=== PATIENT | male | born 1985 | race Caucasian/White ===

== ENCOUNTER 2022-05-02 04:38 | Emergency (ER) | payer SELFPAY ==
--- OUTSIDE RECORDS SUMMARY | 2022-05-02 04:42 | XMS REPORT | Continuity of Care Document ---
:1985 Author Organization [facility] t Address [address] [place] [address] Care Team Providers Name Role Phone JERAMY JESSICA Primary Care Physician Unavailable Elsa Shah Attending Clinician Jorge Maldonado MD Attending Clinician JORGE MALDONADO Attending Clinician Unavailable JORGE MALDONADO Admitting Clinician Unavailable Problems This patient has no known problems. Allergies, Adverse Reactions, Alerts Allergy Allergy Status Severity Reaction(s) Onset Inactive Treating Comm ents Source Name Type Date Date Clinician NO KNOWN Drug Active Univers ALLERGIE Class ity of S [facility] Social History Social Habit Start Date Stop Date Quantity Comments Source Sex Assigned At Uni versity [facility] Exposure to SARS-CoV-2 Not sure [facility] [place] (event) [facility] Smoking Status Start Date Stop Date Source Unknown if ever smoked Universit y [facility] Medications Ordered Filled Start Stop Current Ordering Indication Dosage Frequency Signature Comments Components Source Medication Medication Date Date Medication? Clinician (SIG) Name Name dicyclomine 2020-0 Yes [id number] 10mg Take 1 Univers (BENTYL) 10 5-16 capsule by it [place] of [place]four[place] Medical times Branch daily. ondansetron 2020-0 Yes [id number] 4mg Take 1 Univers 4 mg 5-16 tablet by ity of disintegrat 00:00: mouth [place] ing tablet 00 every 4 Medica l (four) Branch hours as needed for Nausea and Vomiting (N/V). polyethylen 2020-0 2020- No [id number] 17g Take 17 g Univers e glycol 5-16 05-27 by mouth ity of (MIRALAX) 00:00[place] 04[place]59 [place] :00 10 days. Medical gram/dose Branch powder Vital Signs Vital Name Observation Time Observation Value Comments Source Systolic blood 2019-10-25 18:40:00 117 mm[Hg] [facility] Diastolic blood 2019-10-25 18:40:00 74 mm[Hg] [facility] Heart rate 2019-10-25 18:40:00 65 /min [facility] Respiratory rate 2019-10-25 18:40:00 17 /min [facility] Oxygen saturation in 2019-10-25 18:40:00 96 /min [facility] Arterial blood by [facility] Pulse oximetry [place] Body temperature 2019-10-25 17:30:00 37.11 Yolanda [facility] Body weight 2019-10-25 17:30:00 102.059 kg [facility] Procedures Procedure Date / Time Performing Clinician Source Performed HEPATIC FUNCTION PANEL 2019-10-25 18:23:00 Jorge Maldonado [facility] ([id number]) (ALB,T.PRO,BILI [facility] T,BU/BC,ALT,AST,ALK PHOS) BASIC METABOLIC PANEL 2019-10-25 18:23:00 Jorge Maldonado [facility] (NA, K, CL, CO2, [facility] GLUCOSE, BUN, CREATININE, CA) CBC WITH DIFFERENTIAL 2019-10-25 18:23:00 Jorge Maldonado [facility] URINALYSIS 2019-10-25 18:23:00 Jorge Maldonado [employer] [facility] CT ABDOMEN PELVIS WO 2019-10-25 17:55:00 Jorge Maldonado [facility] CONTRAST [facility] NOTICE OF PRIVACY 2019-10-25 17:25:12 Doctor Unassigned, No [facility] PRACTICES Name Medical Branch Encounters Start End Encounter Admission Attending Care Care Encounter Source Date/Time Date/Time Type Type Clinicians Facility Department ID 2019-10-25 2019-10-25 Emergency Elsa Orozco [facility] [id number] Univers 12:32:27 14:35:00 Jorge Maldonado [place] [id number] [facility] [id number] [facility] [id number] [facility] 084 Branch 2019-10-25 2019-10-25 Emergency X MALDONADO, [facility] ERT [id number] Univers 12:32:27 14:35:00 JORGE mason [facility] Results Test Test Test Results Result Source Description Time Comments Comments CT ABDOMEN 2019-10 No acute intra-abdominal University of PELVIS WO -16 abnormality. Specifically, [place] [facility] CONTRAST 19:34:1 no urinary systemcalculi. No Branch 7 hydronephrosis Minimal compression of the left renal vein transiting under the SMA.Correlate with UA to evaluate for hematuria. Preliminary Report Dictated by Resident: Addi Smith MD., have reviewed this study and agree with theabove report.EXAM: CT ABDOMEN AND PELVIS WITHOUT CONTRAST HISTORY: Suspected urinary tract stone COMPARISON: None. TECHNIQUE AND FINDINGS: Contiguous axial imaging from the level of the lungbases through the pubic symphysis was performed without the intravenousadministration of contrast. Coronal and sagittal reconstructions wereobtained. ?Auto mA and/or iterative reconstruction were used to reduceradiation dose. FINDINGS: Limited evaluation of abdominal and pelvic organs due to lack ofintravenous contrast. LOWER THORAX: The lungs bases are clear. LIVER: Enlarged liver measures nearly 22 cm in craniocaudal dimension. Nofocal hepatic lesions identified within limits of unenhanced exam. GALLBLADDER AND BILIARY TREE: Physiologically distended gallbladder withoutradiopaque cholelithiasis. No pericholecystic free fluid. SPLEEN: No splenomegaly. Mildly lobular contour along the medial margin. PANCREAS: No ductal dilation. ADRENAL GLANDS: No adrenal nodules. KIDNEYS: No hydronephrosis or nephrolithiasis. No contour deforming renallesion. Normal unenhanced appearance of bilateral kidneys. PERITONEUM AND RETROPERITONEUM: No free air or fluid. LYMPH NODES: No lymphadenopathy. Mildly prominent lymph node adjacent tothe left diaphragmatic jaleel and left adrenal measures 6 mm in short axis,likely reactive.. Few additional subcentimeter mesenteric lymph nodes arealso thought to be reactive. GI TRACT: No dilation or abnormal wall thickening. Normal appendix. Mildrectosigmoid diverticulosis without diverticulitis. Tiny sliding-typehiatal hernia. PELVIS/BLADDER: Urinary bladder is normal for the degree of distention. Noradiopaque calculi within the urinary bladder. VESSELS: Circumaortic left renal vein. Limited evaluation due to lack ofintravenous contrast. BONES AND SOFT TISSUES: No suspicious lytic or sclerotic bony lesions. Mildmultilevel degenerative changes are most prominent at the lumbosacraljunction. Grade 1 retrolisthesis of L5 over S1. Mild anterior superiorendplate wedging at thoracolumbar junction is felt to be degenerative innature. [facility], Radiant Results Inft User - 10/25/2019 2:35 PM CDTEXAM: CT ABDOMEN AND PELVIS WITHOUT CONTRASTHISTORY: Suspected urinary tract stoneCOMPARISON: None.TECHNIQUE AND FINDINGS: Contiguous axial imaging from the level of the lungbases through the pubic symphysis was performed without the intravenousadministration of contrast. Coronal and sagittal reconstructions wereobtained. Auto mA and/or iterative reconstruction were used to reduceradiation dose.FINDINGS: Limited evaluation of abdominal and pelvic organs due to lack ofintravenous contrast.LOWER THORAX: The lungs bases are clear. LIVER: Enlarged liver measures nearly 22 cm in craniocaudal dimension. Nofocal hepatic lesions identified within limits of unenhanced exam.GALLBLADDER AND BILIARY TREE: Physiologically distended gallbladder withoutradiopaque cholelithiasis. No pericholecystic free fluid.SPLEEN: No splenomegaly. Mildly lobular contour along the medial margin.PANCREAS: No ductal dilation.ADRENAL GLANDS: No adrenal nodules.KIDNEYS: No hydronephrosis or nephrolithiasis. No contour deforming renallesion. Normal unenhanced appearance of bilateral kidneys.PERITONEUM AND RETROPERITONEUM: No free air or fluid.LYMPH NODES: No lymphadenopathy. Mildly prominent lymph node adjacent tothe left diaphragmatic jaleel and left adrenal measures 6 mm in short axis,likely reactive.. Few additional subcentimeter mesenteric lymph nodes arealso thought to be reactive.GI TRACT: No dilation or abnormal wall thickening. Normal appendix. Mildrectosigmoid diverticulosis without diverticulitis. Tiny sliding-typehiatal hernia.PELVIS/BLADDER: Urinary bladder is normal for the degree of distention. Noradiopaque calculi within the urinary bladder.VESSELS: Circumaortic left renal vein. Limited evaluation due to lack ofintravenous contrast.BONES AND SOFT TISSUES: No suspicious lytic or sclerotic bony lesions. Mildmultilevel degenerative changes are most prominent at the lumbosacraljunction. Grade 1 retrolisthesis of L5 over S1. Mild anterior superiorendplate wedging at thoracolumbar junction is felt to be degenerative innature.IMPRESSIONNo acute intra-abdominal abnormality. Specifically, no urinary systemcalculi. No hydronephrosisMinimal compression of the left renal vein transiting under the SMA.Correlate with UA to evaluate for hematuria.Preliminary Report Dictated by Resident: Addi Barajas MD., have reviewed this study and agree with theabove report. Urinalysis 2019-10-25 19:16:00 Test Item Value Reference Range Interpretation Comme nts APPEARANCE (test code = Clear Clear 2741404396) COLOR (test code = 0167632189) Yellow Yellow PH (test code = 4726702519) 4.8-8.0 SP GRAVITY (test code = >=1.030 1.003-1.030 8288173777) GLU U QUAL (test code = Negative Negative 5505566380) BLOOD (test code = 0455802121) Negative Negative KETONES (test code = 5963312220) Negative Negative PROTEIN (test code = 2887-8) Negative Negative UROBILIN (test code = 0.2 mg/dL See_Comment [Auto mated message] The 1933364894) system which ge nerated this result transmit cecille reference range: 0-1.0 mg /dL. The reference range was not used to interpret th is result as normal/abnormal . BILIRUBIN (test code = Negative Negative 7193153844) NITRITE (test code = 1849994931) Negative Negative LEUK MILLER (test code = Negative Negative 9718230343) RBC/HPF (test code = 3776314715) <1 See_Comment [Automated message] The system which ge nerated this result transmit cecille reference range: 0 - 3 HP F. The reference range was not used to interpret th is result as normal/abnormal . WBC/HPF (test code = 7008097010) <1 See_Comment [Automated message] The system which ge nerated this result transmit cecille reference range: 0 - 5 HP F. The reference range was not used to interpret th is result as normal/abnormal . BACTERIA (test code = Negative Negative 9244561269) Lab Interpretation (test code = Normal 65015-2) [facility] Metabolic Panel (NA, K, CL, CO2, GLUCOSE, BUN, CREATININE, CA)2019-10-25 18:54:00 Test Item Value Reference Range Interpretation Comments NA (test code = 142 mmol/L 135-145 6076521605) K (test code = 3.6 mmol/L 3.5-5 4319740295) CL (test code = 109 mmol/L 98-108 H 4784627522) CO2 TOTAL (test code = 24 mmol/L 23-31 9065844704) AGAP (test code = 2-16 5616775815) BUN (test code = 12 mg/dL 7-23 8670767606) GLUCOSE (test code = 89 mg/dL 70-110 1785747826) CREATININE (test code = 0.87 mg/dL 0.6-1.25 3476521317) CALCIUM (test code = 9.7 mg/dL 8.6-10.6 0714512604) eGFR Calculation mL/min/1.73m2 (Non-) (test code = 6595581394) eGFR Calculation mL/min/1.73m2 () (test code = 0430013428) HARSHA (test code = HARSHA) Association of Glomerular Filtration Rate (GFR) and Staging of Kidney Disease* + --+ --+ ------+| GFR (mL/min/1.73 m2) ?| With Kidney Damage ?| ?Without Kidney Damage+ --------+ --------+ +| ?>90 ?| ?Stage one ?| ? Normal ?+ ---+ ---+ -------+| ?60-89 ?| ?Stage two ?| ? Decreased GFR ? + --+ --+ ------+| ?30-59 ?| ?Stage three ?| ? Stage three ? + --+ --+ ------+| ?15-29 ?| ?Stage four ? | ? Stage four ?+ ---+ ---+ -------+| ?<15 (or dialysis) ? ?| ?Stage five ? | ? Stage five ?+ ---+ ---+ -------+ *Each stage assumes the associated GFR level has been in effect for at least three months. ?Stages 1 to 5, with or without kidney disease, indicate chronic kidney disease. Notes: Determination of stages one and two (with eGFR >59mL/min/1.73 m2) requires estimation of kidney damage for at least three months as defined by structural or functional abnormalities of the kidney, manifested by either:Pathological abnormalities or Markers of kidney damage (including abnormalities in the composition of the blood or urine or abnormalities in imaging tests). Lab Interpretation Abnormal (test code = 00113-2) [facility] (ALB, T.PRO, BILI T, BU/BC, ALT, AST, ALK PHOS)2019-10-25 18:54:00 Test Item Value Reference Range Interpretation Comments TOTAL BILI (test code = 5191209223) 0.2 mg/dL 0.1-1.1 BILI UNCON (test code = 9005581508) 0.4 mg/dL 0.1-1.1 BILI CONJ (test code = 0003072263) 0.0 mg/dL 0-0.3 T PROTEIN (test code = 5168636974) 6.8 g/dL 6.3-8.2 ALBUMIN (test code = 5142435758) 4.3 g/dL 3.5-5 ALK PHOS (test code = 8638116961) 44 U/L 34-122 ALTv (test code = 1742-6) 19 U/L 5-50 AST(SGOT) (test code = 8691499814) 18 U/L 13-40 Lab Interpretation (test code = Normal 99183-8) [facility] WITH [id number] 18:42:00 Test Item Value Reference Range Interpretation Comments WBC (test code = See_Comment H [Automated 1190-2) message] The sy stem which generated this result transmitted reference range : 4.20 - 10.70 10*3/?L. The reference range was not used to interpret this result as normal/abnormal . RBC (test code = See_Comment [Automated 579-8) message] The sy stem which generated this result transmitted reference range : 4.26 - 5.52 10*6/?L. The reference range was not used to interpret this result as normal/abnormal . HGB (test code = 14.2 g/dL 12.2-16.4 718-7) HCT (test code = 40.6 % 38.4-49.3 4544-3) MCV (test code = 89.8 fL 81.7-95.6 787-2) MCH (test code = 31.4 pg 26.1-32.7 785-6) MCHC (test code = 35.0 g/dL 31.2-35 786-4) RDW-SD (test code = 43.7 fL 38.5-51.6 43675-4) RDW-CV (test code = 13.3 % 12.1-15.4 788-0) PLT (test code = See_Comment [Automated 777-3) message] The sy stem which generated this result transmitted reference range : 150 - 328 10*3/ ?L. The reference r kia was not used to interpret this result as normal/abnormal . MPV (test code = 11.2 fL 9.8-13 13898-0) NRBC/100 WBC (test See_Comment [Automat ed code = 9774531077) message] The system which generated this result transmitted reference range : 0.0 - 10.0 /100 WBCs. The refer ence range was not u sed to interpret th is result as normal/abnormal . NRBC x10^3 (test code <0.01 See_Comment [Auto mated = 0045402459) message] The s ystem which generated this result transmitted reference range : 10*3/?L. The reference range was not used to interpret this result as normal/abnormal . GRAN MAT (NEUT) % 58.4 % (test code = 770-8) IMM GRAN % (test code 0.30 % = 3368364371) LYMPH % (test code = 32.0 % 736-9) MONO % (test code = 6.6 % 5905-5) EOS % (test code = 2.3 % 713-8) BASO % (test code = 0.4 % 706-2) GRAN MAT x10^3(ANC) 6.78 10*3/uL 1.99-6.95 (test code = 8735339922) IMM GRAN x10^3 (test 0.03 10*3/uL 0-0.06 code = 5749609991) LYMPH x10^3 (test code 3.71 10*3/uL 1.09-3.23 H = 731-0) MONO x10^3 (test code 0.76 10*3/uL 0.36-1.02 = 742-7) EOS x10^3 (test code = 0.27 10*3/uL 0.06-0.53 711-2) BASO x10^3 (test code 0.05 10*3/uL 0.01-0.09 = 704-7) Lab Interpretation Abnormal (test code = 24035-8) [facility]"
[2022-05-02] MEDS ORDERED: AMOX/K CLAV 875 MG TAB ONE (05:25)
--- NOTE | 2022-05-02 05:26 | EDPHYS ---
Physician Documentation [facility] Name: Cesar Zambrano Age: 37 yrs Sex: Male : 1985 Arrival Date: 05/02/2022 Time: 04:42 Bed 20 Private MD: ED Physician Lito Leal HPI: 05/02 05:19 This 37 yrs old Male presents to ER via Ambulatory with complaints of anaid Toothache. 05:19 The patient presents with pain, redness. The problem is located in the left anaid submandibular area. Onset: The symptoms/episode began/occurred 1 day(s) ago. Duration: The symptoms are continuous, and are steadily getting worse. Modifying factors: The symptoms are alleviated by nothing, the symptoms are aggravated by nothing. Associated signs and symptoms: The patient has no apparent associated signs or symptoms. Severity of symptoms: At their worst the symptoms were moderate, this morning, in the emergency department the symptoms are unchanged. The patient has experienced similar episodes in the past, a few times. Historical: - Allergies: 04:52 No Known Allergies; aa9 - Home Meds: 04:52 None [Active]; aa9 - PMHx: 04:52 None; aa9 - PSHx: 04:52 None; aa9 - Immunization history:: Client reports having NOT received the Covid vaccine. - Social history:: Smoking status: Patient reports use of chewing tobacco. - Family history:: not pertinent. ROS: 05:19 Constitutional: Negative for fever, chills, and weight loss, Eyes: Negative for injury, anaid pain, redness, and discharge, Neck: Negative for injury, pain, and swelling, Cardiovascular: Negative for chest pain, palpitations, and edema, Respiratory: Negative for shortness of breath, cough, wheezing, and pleuritic chest pain, Abdomen/GI: Negative for abdominal pain, nausea, vomiting, diarrhea, and constipation, Back: Negative for injury and pain, : Negative for injury, bleeding, discharge, and swelling, MS/Extremity: Negative for injury and deformity, Skin: Negative for injury, rash, and discoloration, Neuro: Negative for headache, weakness, numbness, tingling, and seizure, Psych: Negative for depression, anxiety, suicide ideation, homicidal ideation, and hallucinations, Allergy/Immunology: Negative for hives, rash, and allergies, Endocrine: Negative for neck swelling, polydipsia, polyuria, polyphagia, and marked weight changes, Hematologic/Lymphatic: Negative for swollen nodes, abnormal bleeding, and unusual bruising. 05:19 ENT: Positive for dental pain. Exam: 05:19 Constitutional: This is a well developed, well nourished patient who is awake, alert, anaid and in no acute distress. Head/Face: Normocephalic, atraumatic. Eyes: Pupils equal round and reactive to light, extra-ocular motions intact. Lids and lashes normal. Conjunctiva and sclera are non-icteric and not injected. Cornea within normal limits. Periorbital areas with no swelling, redness, or edema. Neck: Trachea midline, no thyromegaly or masses palpated, and no cervical lymphadenopathy. Supple, full range of motion without nuchal rigidity, or vertebral point tenderness. No Meningismus. Chest/axilla: Normal chest wall appearance and motion. Nontender with no deformity. No lesions are appreciated. Cardiovascular: Regular rate and rhythm with a normal S1 and S2. No gallops, murmurs, or rubs. Normal PMI, no JVD. No pulse deficits. Respiratory: Lungs have equal breath sounds bilaterally, clear to auscultation and percussion. No rales, rhonchi or wheezes noted. No increased work of breathing, no retractions or nasal flaring. Abdomen/GI: Soft, non-tender, with normal bowel sounds. No distension or tympany. No guarding or rebound. No evidence of tenderness throughout. Back: No spinal tenderness. No costovertebral tenderness. Full range of motion. Male : Normal genitalia with no discharge or lesions. Skin: Warm, dry with normal turgor. Normal color with no rashes, no lesions, and no evidence of cellulitis. MS/ Extremity: Pulses equal, no cyanosis. Neurovascular intact. Full, normal range of motion. Neuro: Awake and alert, GCS 15, oriented to person, place, time, and situation. Cranial nerves II-XII grossly intact. Motor strength 5/5 in all extremities. Sensory grossly intact. Cerebellar exam normal. Normal gait. Psych: Awake, alert, with orientation to person, place and time. Behavior, mood, and affect are within normal limits. 05:19 ENT: Mouth: Gums: noted to have cellulitis, pink, reddened, on the lower left second molar, Posterior pharynx: is normal, airway is patent, no erythema, no exudate, no peritonsilar mass, no pooling of secretions, no swelling, normal tonsil apperance, normal sized tonsils, normal uvula appearance, normal uvula size, Airway: normal, no evidence of obstruction, Tonsils: are normal in appearance, Uvula: normal, midline, swelling, is not appreciated, erythema, is not appreciated, exudate, is not appreciated, peritonsillar mass, is not appreciated. Vital Signs: 04:50 BP 154 / 92; Pulse 60; Resp 18 S; Temp 98.3(O); Pulse Ox 100% on R/A; Weight 106.59 kg aa9 (R); Height 6 ft. 0 in. (182.88 cm) (R); Pain 9/10; 05:28 BP 150 / 80; Pulse 62; Resp 17 S; Pulse Ox 98% on R/A; aa9 04:50 Body Mass Index 31.87 (106.59 kg, 182.88 cm) aa9 MDM: 04:47 Patient medically screened. anaid 05:25 Differential diagnosis: dental caries, dental abscess, gingivostomatitis. Data anaid reviewed: vital signs, nurses notes. Data interpreted: aquarium specialist: rate is 60 beats/min, rhythm is normal sinus rhythm, regular, Pulse oximetry: on room air is 100 %. Counseling: I had a detailed discussion with the patient and/or guardian regarding: the historical points, exam findings, and any diagnostic results supporting the discharge/admit diagnosis, the need for outpatient follow up, for definitive care, a dentist, an oral maxilofacial specialist. Administered Medications: 05:26 Drug: Augmentin (Amoxicillin-Clavulanate) 875 mg Route: PO; aa9 Disposition Summary: 05/02/22 05:26 Discharge Ordered Location: Home anaid Problem: new anaid Symptoms: have improved anaid Condition: Stable anaid Diagnosis - Dental caries, unspecified anaid - Dental root caries anaid Followup: anaid - With: Private Physician - When: 1 - 2 days - Reason: Recheck today's complaints, Continuance of care, Re-evaluation by your physician Followup: anaid - With: Lv Mercedes DDS - When: 1 - 2 days - Reason: Recheck today's complaints, Re-evaluation by your physician Discharge Instructions: - Discharge Summary Sheet anaid - Dental Caries, Adult anaid - Dental Pain anaid - Dental Pain, [id number] anaid - Diet and Dental Disease anaid - Dental Caries, Adult, [id number] [facility] Forms: - Medication Reconciliation Form anaid - Thank You Letter anaid - Antibiotic Education anaid - Prescription Opioid Use [facility] Prescriptions: - Amoxicillin 500 mg Oral Capsule - take 1 capsule by ORAL route every 8 hours for 10 days; 30 tablet; Refills: 0, [facility] Product Selection Permitted - Ibuprofen 600 mg Oral Tablet - take 1 tablet by ORAL route every 6 hours As needed take with food; 20 tablet; [facility] Refills: 0, Product Selection Permitted - Tylenol-Codeine #3 300 mg-30 mg Oral - take 2 tablet by ORAL route every 6 hours; 20 tablet; Refills: 0, Product anaid Selection Permitted Signatures: Lito Leal MD MD cha Avalos, Aylin, RN RN aa9
--- NOTE | 2022-05-02 05:26 | ER ---
Nurse's Notes [facility] Name: Cesar Zambrano Age: 37 yrs Sex: Male : 1985 Arrival Date: 05/02/2022 Time: 04:42 Bed 20 Private MD: Diagnosis: Dental caries, unspecified;Dental root caries Presentation: 05/02 04:50 Chief complaint: Patient states: My left side of my jaw hurts, I know its my tooth, its aa9 been hurting all night, Aleve barely helps at all, I just want some antibiotics. Coronavirus screen: Vaccine status: Patient reports being unvaccinated. Ebola Screen: No symptoms or risks identified at this time. Initial Sepsis Screen: Does the patient meet any 2 criteria? No. Patient's initial sepsis screen is negative. Does the patient have a suspected source of infection? No. Patient's initial sepsis screen is negative. Risk Assessment: Do you want to hurt yourself or someone else? Patient reports no desire to harm self or others. Onset of symptoms was May 02, 2022. 04:50 Method Of Arrival: Ambulatory aa9 04:50 Acuity: TREVIN 4 aa9 Triage Assessment: 04:53 General: Appears in no apparent distress. comfortable, Behavior is calm, cooperative, aa9 appropriate for age. Pain: Complains of pain in left submandibular area Pain currently is 9 out of 10 on a pain scale. EENT: Reports pain in left jaw. Neuro: Level of Consciousness is awake, alert, obeys commands, Oriented to person, place, time, situation. Cardiovascular: Patient's skin is warm and dry. Respiratory: Airway is patent Respiratory effort is even, unlabored. GI: No signs and/or symptoms were reported involving the gastrointestinal system. : No signs and/or symptoms were reported regarding the genitourinary system. Derm: Skin is intact, is healthy with good turgor. Musculoskeletal: No signs and/or symptoms reported regarding the musculoskeletal system. Historical: - Allergies: 04:52 No Known Allergies; aa9 - Home Meds: 04:52 None [Active]; aa9 - PMHx: 04:52 None; aa9 - PSHx: 04:52 None; aa9 - Immunization history:: Client reports having NOT received the Covid vaccine. - Social history:: Smoking status: Patient reports use of chewing tobacco. - Family history:: not pertinent. Screenin:54 Abuse screen: Denies threats or abuse. Denies injuries from another. Nutritional aa9 screening: Difficulty chewing/swallowing? Yes. Tuberculosis screening: No symptoms or risk factors identified. Fall Risk None identified. Assessment: 05:27 Reassessment: Patient appears in no apparent distress at this time. Neuro: Level of aa9 Consciousness is awake, alert, obeys commands, Oriented to person, place, time, situation. Respiratory: Airway is patent Respiratory effort is even, unlabored. Vital Signs: 04:50 BP 154 / 92; Pulse 60; Resp 18 S; Temp 98.3(O); Pulse Ox 100% on R/A; Weight 106.59 kg aa9 (R); Height 6 ft. 0 in. (182.88 cm) (R); Pain 9/10; 05:28 BP 150 / 80; Pulse 62; Resp 17 S; Pulse Ox 98% on R/A; aa9 04:50 Body Mass Index 31.87 (106.59 kg, 182.88 cm) aa9 ED Course: 04:42 Patient arrived in ED. bp1 04:44 Lalita Santos, RN is Primary Nurse. aa9 04:47 Lito Leal MD is Attending Physician. [facility] 04:52 Triage completed. aa9 04:54 Arm band placed on. aa9 04:54 Patient has correct armband on for positive identification. Bed in low position. Call aa9 light in reach. Pulse ox on. NIBP on. 05:26 Lv Mercedes DDS is Referral Physician. anaid 05:33 No provider procedures requiring assistance completed. Patient did not have IV access aa9 during this emergency room visit. Administered Medications: 05:26 Drug: Augmentin (Amoxicillin-Clavulanate) 875 mg Route: PO; aa9 Medication: 05:33 VIS not applicable for this client. aa9 Outcome: 05:26 Discharge ordered by . [facility] 05:33 Discharged to home ambulatory. aa9 05:33 Condition: stable 05:33 Discharge instructions given to patient, Instructed on discharge instructions, follow up and referral plans. Demonstrated understanding of instructions, follow-up care, medications, Prescriptions given X 3. 05:34 Patient left the ED. aa9 Signatures: Lito Leal MD MD cha Paniauga, Brittany bp1 Santos, Lalita, RN RN aa9
[2022-05-02 05:38] VITALS: TEMP 98.3
[2022-05-02 05:39] VITALS: BP 150/80; O2SAT 98
== END 2022-05-02 05:34 | disposition home or self-care (01) ==
LOC: ER 04:38
DX: K02.7 Dental root caries (principal); K02.9 Dental caries, unspecified; F17.220 Nicotine dependence, chewing tobacco, uncomplicated
CPT/HCPCS: 99283

== ENCOUNTER 2022-12-25 17:46 | Emergency (ER) | payer SELFPAY ==
--- OUTSIDE RECORDS SUMMARY | 2022-12-25 17:49 | XMS REPORT | Continuity of Care Document ---
:1985 Author Organization [facility] t Address [address] [place] [address] [place] [id number] Care Team Providers Name Role Phone PCP, PATIENT DOES NOT HAVE A Primary Care Physician Unavaila KARMEN Zelaya Attending Clinician Unavailable Karmen Llamas MD Attending Clinician Elsa Shah Attending Clinician Jessica Maldonado MD Attending Clinician JESSICA MALDONADO Attending Clinician Unavailable KARMEN LLAMAS Admitting Clinician Unavailable JESSIAC MALDONADO Admitting Clinician Unavailable Problems This patient has no known problems. Allergies, Adverse Reactions, Alerts Allergy Allergy Status Severity Reaction(s) Onset Inactive Treating Comm ents Source Name Type Date Date Clinician NO KNOWN Drug Active Univers ALLERGIE Class [facility] Social History Social Habit Start Date Stop Date Quantity Comments Source Gender identity [facility] Exposure to Not sure [facility] SARS-CoV-2 (event) Medica l Branch Sexual orientation [facility] Sex Assigned At [birth year] [facility] 00:00:00 00:00:00 Medical Branch Smoking Status Start Date Stop Date Source Tobacco smoking consumption [facility] Branch Medications Ordered Filled Start Stop Current Ordering Indication Dosage Frequency Signature Comments Components Source Medication Medication Date Date Medication? Clinician (SIG) Name Name iopamidol 2022-0 2023- No [id number] 75mL 75 mL, Univers (ISOVUE 7-12 07-12 Intravenou ity o f 370-500 mL) 02:30: 02:30 s, ONCE, 1 [place] injection 00 :00 dose, On Medica l 75 mL Tue Branch 12/19/22 at 2130, Routine clindamycin 2022- No 600mg 600 mg, IV Univers in 5 % 12-20 Piggyback, ity of dextrose 02:00: 01:30 ONCE, 1 [place] (CLEOCIN) 00 :00 dose, On Medica l 600 mg/50 Tue Branch mL IV 12/19/22 at piggyback 2100, RTU 600 mg Administer over 30 Minutes, 50 mL
R vineet for Anti-Infec tive: Documented Infection< br>Documen cecille Infection Site: HEENT
D uration of Therapy: Other (see Comments)< br>Restric cecille use approved by: ED PROVIDER ketorolac 2022- No 30mg 30 mg, Unive rs (TORADOL) 12-20 Slow IV ity of injection 01:45: 00:54 Push, [place] 30 mg 00 :00 ONCE, 1 Medical dose, On Branch 12/19/22 at 2045, Routine penicillin Yes [id number] 500mg Take 1 Univers v potassium 7-11 tablet by ity of 500 mg 00:00: mouth 4 [place] tablet 00 (four) Medical times Branch daily. ibuprofen Yes [id number] 800mg Take 1 Univers 800 mg 7-11 tablet by ity of tablet 00:00: mouth [place] 00 every 8 Medical (eight) Branch hours as needed for Pain (scale 4-6). dicyclomine 2019-0 Yes [id number] 10mg Take 1 Univers (BENTYL) 10 5-16 capsule by it y of mg capsule 00:00: mouth [place] 00 (four) Medical times Branch daily. ondansetron 2019-0 Yes [id number] 4mg Take 1 Univers 4 mg 5-16 tablet by ity of disintegrat 00:00: mouth [place] ing tablet 00 every 4 Medica l (four) Branch hours as needed for Nausea and Vomiting (N/V). dicyclomine 2020-0 Yes [id number] 10mg Take 1 Univers (BENTYL) 10 5-16 capsule by it y of mg capsule 00:00: mouth [place] 00 (four) Medical times Branch daily. ondansetron 2019-0 Yes [id number] 4mg Take 1 Univers 4 mg 5-16 tablet by ity of disintegrat 00:00: mouth [place] ing tablet 00 every 4 Medica l (four) Branch hours as needed for Nausea and Vomiting (N/V). polyethylen 0 2020- No [id number] 17g Take 17 g Univers e glycol 5-16 05-27 by mouth ity of (MIRALAX) 00:00: 04:59 daily for [place] 17 00 :00 10 days. Medical gram/dose Branch powder Vital Signs Vital Name Observation Time Observation Value Comments Source Body temperature 2022-12-20 02:36:00 37.61 [facility]anda [facility] blood 2022-12-20 01:00:00 141 mm[Hg] Univer [facility] Diastolic blood 2022-12-20 01:00:00 87 mm[Hg] Unive rsity [facility] Heart rate 2022-12-20 01:00:00 94 /min [facility] Oxygen saturation in 2022-12-20 01:00:00 95 /min University of Arterial blood by [facility] patria Pulse oximetry Branch Respiratory rate 2022-12-20 00:14:00 15 /min [facility] Body height 2022-12-20 00:14:00 182.9 cm [facility] Body weight 2022-12-20 00:14:00 103.42 kg [facility] BMI 2022-12-20 00:14:00 30.92 kg/m2 [facility] Systolic blood 2019-10-25 18:40:00 117 mm[Hg] [facility]iver [facility] Diastolic blood 2019-10-25 18:40:00 74 mm[Hg] Unive rsity [facility] Heart rate 2019-10-25 18:40:00 65 /min [facility] Respiratory rate 2019-10-25 18:40:00 17 /min [facility] Oxygen saturation in 2019-10-25 18:40:00 96 /min University of Arterial blood by [employer] patria Pulse oximetry Branch Body temperature 2019-10-25 17:30:00 37.11 Yolanda [facility] Body weight 2019-10-25 17:30:00 102.059 kg [facility] Procedures Procedure Date / Time Performing Clinician Source Performed BASIC METABOLIC PANEL 2022-12-20 00:47:00 Karmen Llamas [facility] (NA, K, CL, CO2, Medical Branch GLUCOSE, BUN, CREATININE, CA) CBC WITH DIFF 2022-12-20 00:47:00 Karmen Llamas [facility] CONSENT/REFUSAL FOR 2022-12-20 00:07:57 Doctor Unassigned, No [facility] DIAGNOSIS AND TREATMENT Name [facility] NOTICE OF PRIVACY 2022-12-20 00:07:37 Doctor Unassigned, No [facility] Name [facility] HEPATIC FUNCTION PANEL 2019-10-25 18:23:00 Jessica Maldonado [facility] ([id number]) (ALB,T.PRO,BILI [facility] T,BU/BC,ALT,AST,ALK PHOS) BASIC METABOLIC PANEL 2019-10-25 18:23:00 Jessica Maldonado [facility] (NA, K, CL, CO2, Medical Branch GLUCOSE, BUN, CREATININE, CA) CBC WITH DIFFERENTIAL 2019-10-25 18:23:00 Daniel Jessica [facility] URINALYSIS 2019-10-25 18:23:00 Jessica Maldonado [facility] [place] [facility] CT ABDOMEN PELVIS WO 2019-10-25 17:55:00 Jessica Maldonado [facility] CONTRAST [facility] NOTICE OF PRIVACY 2019-10-25 17:25:12 Doctor Unassigned, No [facility] Encounters Start End Encounter Admission Attending Care Care Encounter Source Date/Time Date/Time Type Type Clinicians Facility Department ID 2022-12-19 2022-12-19 Emergency X [facility] ERT [id number] Univers 19:17:00 21:38:00 KARMEN [facility] 2022-12-19 2022-12-19 Emergency [facility] [id number] Univers 19:17:00 21:38:00 Karmen HAMMOND [id number] ity [facility] [id number] [facility] [id number] [place] [address] Branch 2019-10-25 2019-10-25 Emergency Elsa Orozco [facility] [id number] Univers 12:32:27 14:35:00 Jessica Maldonado [id number] ity [facility] [id number] [facility] [id number] [place] [address] Branch 2019-10-25 2019-10-25 Emergency X DANIEL [facility] ERT [id number] Univers 12:32:27 14:35:00 JESSICA larissaghada [facility] Results Test Description Test Time Test Comments Results Result Comments Source BASIC METABOLIC PANEL (NA, K, CL, CO2, GLUCOSE, BUN, 2022-12 01:28:50 CREATININE, CA) Test Item Value Reference Range Interpretation Comme nts NA (test code = 8804222158) 142 mmol/L 135-145 K (test code = 0410358306) 4.2 mmol/L 3.5-5.0 CL (test code = 2098898880) 106 mmol/L 98-108 CO2 TOTAL (test code = 24 mmol/L 23-31 0461360128) AGAP (test code = 9447395522) 12 2-16 BUN (test code = 8015232209) 17 mg/dL 7-23 GLUCOSE (test code = 2351357843) 85 mg/dL 70-110 CREATININE (test code = 0.99 mg/dL 0.60-1.25 6689046494) CALCIUM (test code = 8103912365) 9.4 mg/dL 8.6-10.6 eGFR (test code = 1696543709) 86.0 mL/min/1.73m2 HARSHA (test code = HARSHA) Association of Glomerular Filtration Rate (GFR) and Staging of Kidney Disease* + +--------- + ----+| GFR (mL/min/1.73 m2) ?| With Kidney Damage ?| ?Without Kidney Damage+ +--- + +| ?>90 ?| ?Stage one ?| ? Normal ?+ +-------- + -----+| ?60-89 ?| ?Stage two ?| ? Decreased GFR ? + +--------- + ----+| ?30-59 ?| ?Stage three ?| ? Stage three ? + +--------- + ----+| ?15-29 ?| ?Stage four ? | ? Stage four ?+ +-------- + -----+| ?<15 (or dialysis) ? ?| ?Stage five ? | ? Stage five ?+ +-------- + -----+ *Each stage assumes the associated GFR level [...] or urine or abnormalities in imaging tests). General acute hospital WITH [id number] 01:17:09 Test Item Value Reference Range Interpretation Comments WBC (test code = 15.76 See_Comment H [Automated 7890-2) message] The system which generated this result transmit cecille reference range : 4.20 - 10.70 10*3/?L. The reference range was not used to interpret this result as normal/abnormal . RBC (test code = 4.69 See_Comment [Automated 751-8) message] The system which generated this result transmit [place] reference range : 4.26 - 5.52 10*6/?L. The reference range was not used to interpret this result as normal/abnormal . HGB (test code = 14.7 g/dL 12.2-16.4 718-7) HCT (test code = 42.6 % 38.4-49.3 4544-3) MCV (test code = 90.8 fL 81.7-95.6 787-2) MCH (test code = 31.3 pg 26.1-32.7 785-6) MCHC (test code = 34.5 g/dL 31.2-35.0 786-4) RDW-SD (test code = 47.0 fL 38.5-51.6 96434-2) RDW-CV (test code = 14.2 % 12.1-15.4 788-0) PLT (test code = 314 See_Comment [Automated 777-3) message] The system which generated this result transmit [place] reference range : 150 - 328 10*3/ ?L. The reference range was not u sed to interpret th is result as normal/abnormal . MPV (test code = 10.9 fL 9.8-13.0 58945-3) NRBC/100 WBC (test 0.0 See_Comment [Automat ed code = 1959879829) message] The system which generated this result transmit [place] reference range : 0.0 - 10.0 /100 WBCs. The reference range was not used to interpret this result as normal/abnormal . NRBC x10^3 (test code See_Comment [Auto mated = 2880150229) message] The system which generated this result transmit [place] reference range : 10*3/?L. The reference range was not used to interpret this result as normal/abnormal . GRAN MAT (NEUT) % 73.6 % (test code = 770-8) IMM GRAN % (test code 0.40 % = 7569822098) LYMPH % (test code = 15.4 % 736-9) MONO % (test code = 9.4 % 5905-5) EOS % (test code = 0.8 % 713-8) BASO % (test code = 0.4 % 706-2) GRAN MAT x10^3(ANC) 11.61 10*3/uL 1.99-6.95 H (test code = 2161125375) IMM GRAN x10^3 (test 0.07 10*3/uL 0.00-0.06 H code = 8544500950) LYMPH x10^3 (test code 2.42 10*3/uL 1.09-3.23 = 731-0) MONO x10^3 (test code 1.48 10*3/uL 0.36-1.02 H = 742-7) EOS x10^3 (test code = 0.12 10*3/uL 0.06-0.53 711-2) BASO x10^3 (test code 0.06 10*3/uL 0.01-0.09 = 704-7) Lab Interpretation Abnormal (test code = 97703-7) [facility] [id number] 19:34:17 No acute intra-abdominal abnormality. Specifically, no urinary systemcalculi. No hydronephrosis Minimal compression of the left renal [...] FINDINGS: Limited evaluation of abdominal and pelvic orga ns due to lack ofintravenous contrast. LOWER THORAX: [...] Few additional subcentimeter mesenteric lymph nodes arealso thoughtto be reactive. GI TRACT: No dilation or abnormal wall thickening. Normal appendix. Mildrectosigmoiddiverticulosis without diverticulitis. Tiny sliding-typehiatal hernia. PELVIS/BLADDER: Urinary [...] CT ABDOMEN AND PELVIS WITHOUT CONTRASTHISTORY: Suspected urinarytract stoneCOMPARISON: None.TECHNIQUE AND FINDINGS: Contiguous axial imaging from the level of the lungbases through the pubic symphysis was performed without the intravenousadministration of contrast. Coronal and sagittal reconstructions wereobtained. Auto mA and/or iterative reconstruction were usedto reduceradiation dose.FINDINGS: Limited evaluation of abdominal and pelvic organs due to lack ofintravenous contrast.LOWER THORAX: The lungs bases are clear. LIVER: Enlarged liver measures nearly 22 cm in craniocaudal dimension. Nofocal hepatic lesions identified within limits of unenhanced exam.GALLBLADDER AND BILIARY TREE: Physiologically distended gallbladder withoutradiopaque cholelithiasis. Nopericholecystic free fluid.SPLEEN: No splenomegaly. Mildly lobular contour along the medial margin.PA NCREAS: No ductal dilation.ADRENAL GLANDS: No adrenal nodules.KIDNEYS: No hydronephrosis or nephrolithiasis. No contour deforming renallesion. Normal unenhanced appearance of bilateral kidneys.PERITONEUM AND RETROPERITONEUM: No free air or fluid.LYMPH NODES: No lymphadenopathy. Mildly prominent lymph node adjacent tothe left diaphragmatic jaleel and left adrenal measures 6 mm in short axis,likely reactive.. Few additional subcentimeter mesenteric lymph nodes arealso thought to be reactive.GI TRACT: Nodilation or abnormal wall thickening. Normal appendix. Mildrectosigmoid diverticulosis without diverticulitis. Tiny sliding-typehiatal hernia.PELVIS/BLADDER: Urinary bladder is normal for the degree ofdistention. Noradiopaque calculi within the urinary bladder.VESSELS: Circumaortic left renal vein. Limited evaluation due to lack ofintravenous contrast.BONES AND SOFT TISSUES: No suspicious lytic or sclerotic bony lesions. Mildmultilevel degenerative changes are most prominent at the lumbosacraljuncti on. Grade 1 retrolisthesis of L5 over S1. Mild anterior superiorendplate wedging at thoracolumbar junction is felt to be degenerative innature.IMPRESSIONNo acute intra-abdominal abnormality. Specifically, no urinary systemcalculi. No hydronephrosisMinimal compression of the left renal vein transiting under the SMA.Correlate with UA to evaluate for hematuria.Preliminary Report Dictated by Resident: Victor M Marx, Addi Camacho MD., have reviewed this study and agree with theabove report.[facility] 2019-10-25 19:16:00 Test Item Value Reference Range Interpretation Comments APPEARANCE (test code = Clear Clear 3053459457) COLOR (test code = Yellow Yellow 6522608550) PH (test code = 4.8-8.0 3621183851) SP GRAVITY (test code = >=1.030 1.003-1.030 4872467411) GLU U QUAL (test code = Negative Negative 1253879200) BLOOD (test code = Negative Negative 4081708585) KETONES (test code = Negative Negative 4099365099) PROTEIN (test code = Negative Negative 2887-8) UROBILIN (test code = 0.2 mg/dL See_Comment [Auto mated message] 6310567327) The system [employer] generated this result transmit cecille reference range : 0-1.0 mg/dL. Th e reference range was not used to interpret this result as normal/abnormal . BILIRUBIN (test code = Negative Negative 2292621742) NITRITE (test code = Negative Negative 2532186553) LEUK MILLER (test code = Negative Negative 7222380442) RBC/HPF (test code = <1 See_Comment [Autom ated message] 1630363026) The system [employer] generated this result transmit cecille reference range : 0 - 3 HPF. The refe rence range was not u sed to interpret th is result as normal/abnormal . WBC/HPF (test code = <1 See_Comment [Autom ated message] 4097042889) The system [employer] generated this result transmit cecille reference range : 0 - 5 HPF. The refe rence range was not u sed to interpret th is result as normal/abnormal . BACTERIA (test code = Negative Negative 4545171749) Lab Interpretation (test Normal code = 72595-3) [facility] (NA, K, CL, CO2, GLUCOSE, BUN, CREATININE, CA)2019-10-25 18:54:00 Test Item Value Reference Range Interpretation Comments NA (test code = 142 mmol/L 135-145 7685503062) K (test code = 3.6 mmol/L 3.5-5 7546520075) CL (test code = 109 mmol/L 98-108 H 6782528129) CO2 TOTAL (test code = 24 mmol/L 23-31 1102881988) AGAP (test code = 2-16 1432632023) BUN (test code = 12 mg/dL 7-23 0518590197) GLUCOSE (test code = 89 mg/dL 70-110 9040828235) CREATININE (test code = 0.87 mg/dL 0.6-1.25 9995526480) CALCIUM (test code = 9.7 mg/dL 8.6-10.6 6252301266) eGFR Calculation mL/min/1.73m2 (Non-) (test code = 4660755846) eGFR Calculation mL/min/1.73m2 () (test code = 1238195082) HARSHA (test code = HARSHA) Association of [...] tests). Lab Interpretation Abnormal (test code = 95314-2) [facility] (ALB, T.PRO, BILI T, BU/BC, ALT, AST, ALK PHOS)2019-10-25 18:54:00 Test Item Value Reference Range Interpretation Comments TOTAL BILI (test code = 8595261663) 0.2 mg/dL 0.1-1.1 BILI UNCON (test code = 0033602697) 0.4 mg/dL 0.1-1.1 BILI CONJ (test code = 1310857717) 0.0 mg/dL 0-0.3 T PROTEIN (test code = 0811165095) 6.8 g/dL 6.3-8.2 ALBUMIN (test code = 2260993967) 4.3 g/dL 3.5-5 ALK PHOS (test code = 3493228280) 44 U/L 34-122 ALTv (test code = 1742-6) 19 U/L 5-50 AST(SGOT) (test code = 3428543097) 18 U/L 13-40 Lab Interpretation (test code = Normal 58055-6) [facility] WITH [id number] 18:42:00 Test Item Value Reference Range Interpretation Comments WBC (test code = See_Comment H [Automated 7751-2) message] The sy stem which generated this result transmitted reference range : 4.20 - 10.70 10*3/?L. The reference range was not used to interpret this result as normal/abnormal . RBC (test code = See_Comment [Automated 948-8) message] The sy stem which generated this [...] RDW-SD (test code = 43.7 fL 38.5-51.6 51689-2) RDW-CV (test code = 13.3 % 12.1-15.4 788-0) PLT (test code = See_Comment [Automated 777-3) message] The sy stem which generated this result transmitted reference range : 150 - 328 10*3/ ?L. The reference r kia was not used to interpret this result as normal/abnormal . MPV (test code = 11.2 fL 9.8-13 29083-2) NRBC/100 WBC (test See_Comment [Automat ed code = 5161791348) message] The system which generated this result transmitted reference range : 0.0 - 10.0 /100 WBCs. The refer ence range was not u sed to interpret th is result as normal/abnormal . NRBC x10^3 (test code <0.01 See_Comment [Auto mated = 0213551120) message] The s ystem which generated this result transmitted reference range : 10*3/?L. The reference range was not used to interpret this result as normal/abnormal . GRAN MAT (NEUT) % 58.4 % (test code = 770-8) IMM GRAN % (test code 0.30 % = 1607698658) LYMPH % (test code = 32.0 % 736-9) MONO % (test code = 6.6 % 5905-5) EOS % (test code = 2.3 % 713-8) BASO % (test code = 0.4 % 706-2) GRAN MAT x10^3(ANC) 6.78 10*3/uL 1.99-6.95 (test code = 1591965172) IMM GRAN x10^3 (test 0.03 10*3/uL 0-0.06 code = 8744961749) LYMPH x10^3 (test code 3.71 10*3/uL 1.09-3.23 H = 731-0) MONO x10^3 (test code 0.76 10*3/uL 0.36-1.02 = 742-7) EOS x10^3 (test code = 0.27 10*3/uL 0.06-0.53 711-2) BASO x10^3 (test code 0.05 10*3/uL 0.01-0.09 = 704-7) Lab Interpretation Abnormal (test code = 28011-9) [facility]"
[2022-12-25] MEDS ORDERED: NA CHLORIDE 0.9% 1,000 ML ONE (18:57)
[2022-12-25] MEDS ORDERED: HYDROMORPHONE HCL 1 MG/ML INJ ONE ×2 (18:57→20:28)
[2022-12-25 19:40] LABS: Absolute Lymphocytes (CBC) 1.2 K/uL (0.7-4.9); Hematocrit 44.3 % (39.6-49.0); MCV 92.5 fL (80-100); MPV 8.5 fL (7.6-11.3); RBC Red Blood Cell Count 4.79 M/uL (4.33-5.43)
[2022-12-25 19:41] LABS: Protime INR 1.41
[2022-12-25 20:01] LABS: Bilirubin Total 0.5 mg/dL (0.2-1.0); Potassium 3.9 mEq/L (3.5-5.1); Protein, Total 8.2 g/dL (6.4-8.2)
[2022-12-25 20:07] LABS: Specific Gravity > 1.030 (1.005-1.030); Urine Bacteria None Seen /HPF (<20); Urine Bilirubin NEGATIVE (Negative); Urine Blood Negative (Negative); Urine Clarity Clear (Clear); Urine Color Yellow (Yellow); Urine Glucose NEGATIVE (Negative); Urine Mucus 1+ /HPF (None Seen); Urine Protein 1+ (Negative); Urine RBC <5 /HPF (None Seen); Urine Urobilinogen Normal (Normal); Urine pH 5.5 (5.0-7.0)
[2022-12-25] MEDS ORDERED: CLINDAMYCIN 900MG/D5W 900 MG/50 ML IVPB IV ONE (20:29)
--- NOTE | 2022-12-25 20:41 | RAD REPORT ---
EXAM DESCRIPTION: CTFacial Bones W Con Mpr12/25/2022 8:19 pm CLINICAL HISTORY: Facial pain and swelling COMPARISON: None. TECHNIQUE: Computed axial tomography of the face obtained with coronal and sagittal reconstruction. 50 cc Isovue-[address] scans are performed using dose optimization technique as appropriate and may include automated exposure control or mA/KV adjustment according to patient size. FINDINGS: 1 centimeter apical abscess left mandibular molar tooth with disruption of cortex. Smaller right mandibular tooth apical abscess is present. A 4 x 2 centimeter abscess is present within the left submandibular space. A cellulitis extends adjac ent to the left submandibular gland, left submental space and left parapharyngeal space. No abnormality of the airway noted. IMPRESSION: Left maxillary apical tooth abscess with disruption of the mandibular cortex. 4 x 2 centimeter abscess left submandibular space. Cellulitis extends into left submandibular, left submental left parapharyngeal spaces No abnormality of the airway
--- NOTE | 2022-12-25 21:31 | EDPHYS ---
Physician Documentation [facility] Name: Cesar Zambrano Age: 37 yrs Sex: Male : 1985 Arrival Date: 12/25/2022 Time: 17:46 Bed 14 Private MD: ED Physician Lito Leal HPI: 12/25 18:22 This 37 yrs old Male presents to ER via Ambulatory with complaints of Left side facial cp swelling. 18:22 The patient presents with pain, swelling. cp 18:22 The problem is located in the left lower jaw. Onset: The symptoms/episode cp began/occurred 12-19-2022, became worse this morning. Associated signs and symptoms: Pertinent positives: fever, pain, difficulty opening mouth, Pertinent negatives: vomiting. Severity of symptoms: in the emergency department the symptoms are actually worse, moderately. Patient reports being seen at [facility] on 12-19-2022 and being given IV antibiotics, discharged to home with RX for oral Pen VK. Historical: - Allergies: 17:57 No Known Allergies; ll1 - PMHx: 17:57 None; ll1 - PSHx: 17:57 None; ll1 - Immunization history:: Client reports having NOT received the Covid vaccine. - Social history:: Smoking status: Patient reports use of chewing tobacco. Patient/guardian denies using tobacco. ROS: 18:25 Constitutional: Negative for body aches, fever. cp 18:25 Eyes: Negative for injury, pain, redness, and discharge. cp 18:25 ENT: Negative for drainage from ear(s), ear pain, sore throat, difficulty swallowing, difficulty handling secretions. 18:25 Cardiovascular: Negative for chest pain, edema, palpitations. 18:25 Respiratory: Negative for cough, shortness of breath, wheezing. 18:25 Abdomen/GI: Negative for abdominal pain, vomiting, diarrhea, constipation. 18:25 : Negative for urinary symptoms. 18:25 Neuro: Negative for altered mental status, dizziness, headache, weakness. 18:25 All other systems are negative. Exam: 18:30 Constitutional: The patient appears in no acute distress, alert, awake, cp non-diaphoretic, non-toxic, well developed, well nourished, in obvious pain, uncomfortable. 18:30 Head/face: Noted is swelling, that is severe, of the left lower jaw, tenderness, that cp is severe, of the left cheek and left mandible. 18:30 Eyes: Periorbital structures: appear normal, Conjunctiva: normal, no exudate, no injection, Sclera: no appreciated abnormality, Lids and lashes: appear normal, bilaterally. 18:30 ENT: External ear(s): are unremarkable, Ear canal(s): are normal, clear, TM's: bulging, is not appreciated, bilaterally, dullness, bilaterally, erythema, is not appreciated, bilaterally, Nose: is normal, Mouth: Lips: moist, Oral mucosa: pink and intact, moist, unable to fully open mouth, pain and tenderness to submental area, Posterior pharynx: is normal, airway is patent, no erythema, no exudate, Dental exam: dental caries, that is moderate, diffusely, gum swelling, that is severe, specifically in the left lower outer gumline, Voice: is normal. 18:30 Neck: ROM/movement: is normal, is supple, no range of motions limitations, no meningismus, no nuchal rigidity. 18:30 Chest/axilla: Inspection: normal, Palpation: crepitus, is not appreciated, tenderness, is not appreciated. 18:30 Cardiovascular: Rate: normal, Rhythm: regular. 18:30 Respiratory: the patient does not display signs of respiratory distress, Respirations: cp normal, no use of accessory muscles, no retractions, labored breathing, is not present, Breath sounds: are clear throughout, no decreased breath sounds, no stridor, no wheezing. 18:30 Abdomen/GI: Exam negative for discomfort, distension, guarding, Inspection: abdomen cp appears normal. 18:30 Neuro: Orientation: to person, place \T\ time. Mentation: is normal, Motor: moves all fours, strength is normal, Sensation: is normal. Vital Signs: 17:56 BP 152 / 92; Pulse 89; Resp 17; Temp 98.5; Pulse Ox 100% ; Weight 105.23 kg; Height 6 ll1 ft. 0 in. ; Pain 10/10; 19:20 BP 152 / 89; Pulse 80; Resp 16 S; Pulse Ox 99% on R/A; ha1 20:00 BP 137 / 76; Pulse 93; Resp 19 S; Pulse Ox 100% on R/A; ha1 20:30 BP 146 / 85; Pulse 90; Resp 18 S; Pulse Ox 99% on R/A; ha1 21:00 BP 141 / 86; Pulse 90; Resp 16 S; Pulse Ox 99% on R/A; ha1 21:30 BP 139 / 84; Pulse 91; Resp 16 S; Pulse Ox 99% on R/A; ha1 22:30 BP 138 / 79; Pulse 103; Resp 20 S; Temp 102.5(O); Pulse Ox 98% on R/A; ha1 23:30 BP 141 / 91; Pulse 102; Resp 20 S; Temp 99.5; Pulse Ox 98% on R/A; ha1 12/26 00:05 Temp 98.8; ha1 00:30 BP 142 / 75; Pulse 87; Resp 18 S; Pulse Ox 97% on R/A; ha1 01:00 BP 145 / 73; Pulse 92; Resp 18 S; Pulse Ox 97% on R/A; ha1 02:00 BP 135 / 78; Pulse 86; Resp 18 S; Pulse Ox 96% on R/A; ha1 02:58 BP 134 / 76; Pulse 83; Resp 20 S; Temp 98.8; Pulse Ox 96% on R/A; ha1 03:45 BP 144 / 84; Pulse 100; Resp 20 S; Pulse Ox 99% on R/A; ha1 12/25 17:56 Body Mass Index 31.46 (105.23 kg, 182.88 cm) ll1 12/25 17:56 Pain Scale: Adult ll1 MDM: 12/25 17:59 Patient medically screened. cp 19:00 Differential diagnosis: dental caries, dental abscess, pericoronitis, cp gingivostomatitis, sepsis. 21:35 Data reviewed: vital signs, nurses notes, lab test result(s), EKG, radiologic studies, cp CT scan, and as a result, I will transfer patient. 21:40 Counseling: I had a detailed discussion with the patient and/or guardian regarding: the cp historical points, exam findings, and any diagnostic results supporting the discharge/admit diagnosis, lab results, radiology results, the need to transfer to another facility, [facility] does not immediately have the required specialist. 12/26 01:30 ED course: attempt to transfer patient to multiple hospital systems unsuccessful: [facility], cp Cristino Damico [facility], [facility] due capacity, lack of OMF services. 02:10 ED course: consult with ED physician DR Greer \T\PHIL Greene in [place], will accept cp patient as transfer. 12/25 18:15 Order name: Blood Culture Adult (2) 12/25 18:15 Order name: CBC with Diff; Complete Time: 20:04 12/25 20:04 Interpretation: Normal except: WBC 20.50; KAYDEN% 85.7; LYM% 6.0; NEUT A 17.6; MNA 1.6. 12/25 18:15 Order name: CMP; Complete Time: 20:04 12/26 01:48 Interpretation: Normal except: GLUC 109; ALT 63; A/G 1.0; GLOB 4.2. 12/25 18:15 Order name: Lactate w/ 2H reflex if indic.; Complete Time: 20:04 12/26 01:49 Interpretation: LAC 1.2; Reviewed. 12/25 18:15 Order name: Protime (+inr); Complete Time: 20:04 12/25 20:04 Interpretation: Reviewed. 12/25 18:15 Order name: Urinalysis w/ reflexes; Complete Time: 21:05 12/25 21:05 Interpretation: Normal except: Urine SG > 1.030; UKET 2+; UPROT 1+. 12/25 18:56 Order name: CT Facial Bones W/ Con \T\ Mpr; Complete Time: 21:05 12/25 18:15 Order name: EKG; Complete Time: 18:16 12/25 18:15 Order name: Accucheck; Complete Time: 20:08 12/25 18:15 Order name: Cardiac monitoring; Complete Time: 19:32 12/25 18:15 Order name: EKG - Nurse/Tech; Complete Time: 18:50 12/25 18:15 Order name: IV Saline Lock - Large Bore; Complete Time: 19:32 12/25 18:15 Order name: Labs collected and sent; Complete Time: 19:32 12/25 18:15 Order name: O2 Per Protocol; Complete Time: 18:50 12/25 18:15 Order name: O2 Sat Monitoring; Complete Time: 18:50 12/25 18:15 Order name: Vital Signs; Complete Time: 19:32 cp Administered Medications: 12/25 19:22 Drug: HYDROmorphone IVP 1 mg Route: IVP; Site: left antecubital; ha1 20:00 Follow up: Response: No adverse reaction; Pain is unchanged, physician notified; RASS: ha1 Alert and Calm (0) 19:22 Drug: NS 0.9% IV 1000 ml Route: IV; Rate: 1 bolus; Site: left antecubital; ha1 20:25 Drug: HYDROmorphone IVP 1 mg Route: IVP; Site: left antecubital; ha1 21:00 Follow up: Response: No adverse reaction; Pain is decreased; RASS: Alert and Calm (0) ha1 20:33 Drug: Clindamycin IVPB 900 mg Route: IVPB; Infused Over: 30 mins; Site: left ha1 antecubital; 21:00 Follow up: Response: No adverse reaction; IV Status: Completed infusion; IV Intake: [id number] 22:50 Drug: Acetaminophen PO 1000 mg Route: PO; ha1 23:50 Follow up: Response: No adverse reaction; Temperature is decreased ha1 23:10 Drug: Ampicillin-Sulbactam Sodium IVPB 3 grams Route: IVPB; Infused Over: 30 mins; ha1 Site: left antecubital; 23:40 Follow up: Response: No adverse reaction; IV Status: Completed infusion; IV Intake: ha1 100ml 12/26 00:21 Drug: HYDROmorphone IVP 1 mg Route: IVP; Site: left antecubital; ha1 00:55 Follow up: Response: No adverse reaction; Pain is unchanged, physician notified; RASS: ha1 Restless (+1) 00:21 Drug: NS 0.9% IV 1000 ml Route: IV; Rate: 1 bolus; Site: left antecubital; ha1 00:21 Drug: NS 0.9% IV 1000 ml Route: IV; Rate: 125 ml/hr; Site: left antecubital; ha1 01:20 Drug: Ketorolac IVP 15 mg Route: IVP; Site: left antecubital; ha1 02:00 Follow up: Response: No adverse reaction; Pain is decreased ha1 04:11 Drug: HYDROmorphone IVP 1 mg Route: IVP; Site: left antecubital; ha1 Disposition Summary: 12/25/22 21:31 Transfer Ordered Reason: Higher level of care cp Condition: Stable cp Problem: an ongoing problem cp Symptoms: have improved cp Transfer Location: Other Acute Care Facility(12/26/22 02:11) cp Accepting Physician: DR Hale(12/26/22 04:16) ha1 Diagnosis - Sepsis, unspecified organism cp - Periapical abscess with sinus cp Forms: - Medication Reconciliation Form cp - SBAR form cp Signatures: Dispatcher [employer] EDMS Lito Barton PA PA cp Tessa Vera RN RN 1 Gianna Uribe RN RN ha1 Corrections: (The following items were deleted from the chart) 01:48 12/25 20:04 Normal except: GLUC 109. cp cp 12/26 01:48 01:48 Normal except: GLUC 109; ALT 63. cp cp 01:48 12/25 21:31 Doctor cp cp 12/26 01:52 01:48 Doctor cp cp 01:54 12/25 21:31 Disorder of teeth and supporting structures, unspecified cp cp 12/26 01:54 01:52 Doctor cp cp 02:11 12/25 21:31 [facility] cp cp 12/26 02:11 01:54 Doctor cp cp 04:16 02:11 DR Hale cp ha1
--- NOTE | 2022-12-25 21:31 | ER ---
Nurse's Notes [facility] Name: Cesar Zambrano Age: 37 yrs Sex: Male : 1985 Arrival Date: 12/25/2022 Time: 17:46 Bed 14 Private MD: Diagnosis: Sepsis, unspecified organism;Periapical abscess with sinus Presentation: 12/25 17:56 Chief complaint: Patient states: Left lower jaw tooth pain since 12/18. On PCN and ll1 Ibuprofen, site getting worse. Coronavirus screen: Client denies travel out of the [place] in the last 14 days. At this time, the client does not indicate any symptoms associated with coronavirus-19. Ebola Screen: Patient denies travel to an Ebola-affected area in the 21 days before illness onset. Initial Sepsis Screen: Does the patient meet any 2 criteria? No. Patient's initial sepsis screen is negative. Does the patient have a suspected source of infection? Yes: Other: jaw/tooth pain. Risk Assessment: Do you want to hurt yourself or someone else? Patient reports no desire to harm self or others. Onset of symptoms was December 18, 2022. 17:56 Method Of Arrival: Ambulatory ll1 17:56 Acuity: TREVIN 3 ll1 Historical: - Allergies: 17:57 No Known Allergies; ll1 - PMHx: 17:57 None; ll1 - PSHx: 17:57 None; ll1 - Immunization history:: Client reports having NOT received the Covid vaccine. - Social history:: Smoking status: Patient reports use of chewing tobacco. Patient/guardian denies using tobacco. Screenin:20 Abuse screen: Denies threats or abuse. Denies injuries from another. Nutritional ha1 screening: No deficits noted. Tuberculosis screening: No symptoms or risk factors identified. 19:20 [facility] ED Fall Risk Assessment (Adult) History of falling in the last 3 months, ha1 including since admission No falls in past 3 months (0 pts) Confusion or Disorientation No (0 pts) Intoxicated or Sedated No (0 pts) Impaired Gait No (0 pts) Mobility Assist Device Used No (0 pt) Altered Elimination No (0 pt) Score/Fall Risk Level 0 - 2 = Low Risk Oriented to surroundings, Maintained a safe environment, Educated pt \T\ family on fall prevention, incl call for assistance when getting out of bed. Assessment: 19:20 General: Appears uncomfortable, Behavior is cooperative. Pain: Complains of pain in ha1 left side of lower jaw Pain currently is 10 out of 10 on a pain scale. Quality of pain is described as throbbing. Neuro: Level of Consciousness is awake, alert, obeys commands, Oriented to person, place, time, situation. Cardiovascular: Patient's skin is warm and dry. Respiratory: Airway is patent Respiratory effort is even, unlabored, Respiratory pattern is regular, symmetrical. GI: No signs and/or symptoms were reported involving the gastrointestinal system. Abdomen is round non-distended. : No signs and/or symptoms were reported regarding the genitourinary system. EENT: Reports pain in left jaw. Musculoskeletal: Circulation, motion, and sensation intact. Range of motion: intact in all extremities. 20:00 Reassessment: Patient and/or family updated on plan of care and expected duration. Pain ha1 level reassessed. Patient is alert, oriented x 3, equal unlabored respirations, skin warm/dry/pink. requesting pain medication. notified care provider. 21:00 Reassessment: Patient and/or family updated on plan of care and expected duration. Pain ha1 level reassessed. Patient is alert, oriented x 3, equal unlabored respirations, skin warm/dry/pink. pain 8/10. 22:00 Reassessment: Patient and/or family updated on plan of care and expected duration. Pain ha1 level reassessed. Patient is alert, oriented x 3, equal unlabored respirations, skin warm/dry/pink. 23:00 Reassessment: Patient and/or family updated on plan of care and expected duration. Pain ha1 level reassessed. Patient is alert, oriented x 3, equal unlabored respirations, skin warm/dry/pink. 12/26 00:00 Reassessment: Patient and/or family updated on plan of care and expected duration. Pain ha1 level reassessed. Patient is alert, oriented x 3, equal unlabored respirations, skin warm/dry/pink. 01:00 Reassessment: Patient and/or family updated on plan of care and expected duration. Pain ha1 level reassessed. Patient is alert, oriented x 3, equal unlabored respirations, skin warm/dry/pink. 02:00 Reassessment: Patient and/or family updated on plan of care and expected duration. Pain ha1 level reassessed. Patient is alert, oriented x 3, equal unlabored respirations, skin warm/dry/pink. pain 7/10 Patient states symptoms have improved. 02:43 Reassessment: report given to receiving nurse Stefanie RN. ha1 03:10 Reassessment: Patient and/or family updated on plan of care and expected duration. Pain ha1 level reassessed. Patient is alert, oriented x 3, equal unlabored respirations, skin warm/dry/pink. 04:11 Reassessment: Patient and/or family updated on plan of care and expected duration. Pain ha1 level reassessed. Patient is alert, oriented x 3, equal unlabored respirations, skin warm/dry/pink. pt. being transfer by [facility] ambulance EMS. Vital Signs: 12/25 17:56 BP 152 / 92; Pulse 89; Resp 17; Temp 98.5; Pulse Ox 100% ; Weight 105.23 kg; Height 6 ll1 ft. 0 in. ; Pain 10/10; 19:20 BP 152 / 89; Pulse 80; Resp 16 S; Pulse Ox 99% on R/A; ha1 20:00 BP 137 / 76; Pulse 93; Resp 19 S; Pulse Ox 100% on R/A; ha1 20:30 BP 146 / 85; Pulse 90; Resp 18 S; Pulse Ox 99% on R/A; ha1 21:00 BP 141 / 86; Pulse 90; Resp 16 S; Pulse Ox 99% on R/A; ha1 21:30 BP 139 / 84; Pulse 91; Resp 16 S; Pulse Ox 99% on R/A; ha1 22:30 BP 138 / 79; Pulse 103; Resp 20 S; Temp 102.5(O); Pulse Ox 98% on R/A; ha1 23:30 BP 141 / 91; Pulse 102; Resp 20 S; Temp 99.5; Pulse Ox 98% on R/A; ha1 18 00:05 Temp 98.8; ha1 00:30 BP 142 / 75; Pulse 87; Resp 18 S; Pulse Ox 97% on R/A; ha1 01:00 BP 145 / 73; Pulse 92; Resp 18 S; Pulse Ox 97% on R/A; ha1 02:00 BP 135 / 78; Pulse 86; Resp 18 S; Pulse Ox 96% on R/A; ha1 02:58 BP 134 / 76; Pulse 83; Resp 20 S; Temp 98.8; Pulse Ox 96% on R/A; ha1 03:45 BP 144 / 84; Pulse 100; Resp 20 S; Pulse Ox 99% on R/A; ha1 12/25 17:56 Body Mass Index 31.46 (105.23 kg, 182.88 cm) ll1 12/25 17:56 Pain Scale: Adult ll1 ED Course: 12/25 17:49 Patient arrived in ED. im 17:57 Triage completed. ll1 17:58 Arm band placed on Patient placed in an exam room, on a stretcher. ll1 17:59 Lito Barton PA is PHCP. cp 17:59 Lito Leal MD is Attending Physician. cp 19:00 Patient has correct armband on for positive identification. Placed in gown. Bed in low ha1 position. Call light in reach. Side rails up X 1. Adult w/ patient. 19:31 Gianna Uribe, RN is Primary Nurse. ha1 19:32 Blood Culture Adult (2) Sent. ha1 19:32 CBC with Diff Sent. ha1 19:32 CMP Sent. ha1 19:32 Lactate w/ 2H reflex if indic. Sent. ha1 19:32 Protime (+inr) Sent. ha1 20:21 CT Facial Bones W/ Con \T\ Mpr In Process Unspecified. EDMS 21:11 Initiated transfer to [facility]- Denied due to full capacity. mc5 21:[address] [facility]- Denied due to not having specialty. mc5 21:43 Initiated transfer to [facility]- denied due to not having specialty. mc5 22:26 transfer initiated to [facility], denied due to full capacity. 5 22:45 transfer initiated to [facility]- denied due to capacity. 5 23:57 transfer initiated to [facility]- denied due to full capacity. [facility] 12/26 01:50 transfer initiated to [facility]. 5 02:10 Patient accepted at [facility] by Dr. Christensen to the ER for Maxillofacial 5 Surgery. Admin approval by Cristiano Frost RN at 0210. 02:37 Contacted [facility] to request transport truck to [facility] 1 hour. 5 04:14 No provider procedures requiring assistance completed. Patient transferred, IV remains ha1 in place. 04:15 Provided Education on: need for transfer . ha1 Administered Medications: 12/25 19:22 Drug: HYDROmorphone IVP 1 mg Route: IVP; Site: left antecubital; ha1 20:00 Follow up: Response: No adverse reaction; Pain is unchanged, physician notified; RASS: ha1 Alert and Calm (0) 19:22 Drug: NS 0.9% IV 1000 ml Route: IV; Rate: 1 bolus; Site: left antecubital; ha1 20:25 Drug: HYDROmorphone IVP 1 mg Route: IVP; Site: left antecubital; ha1 21:00 Follow up: Response: No adverse reaction; Pain is decreased; RASS: Alert and Calm (0) 1 20:33 Drug: Clindamycin IVPB 900 mg Route: IVPB; Infused Over: 30 mins; Site: left ha1 antecubital; 21:00 Follow up: Response: No adverse reaction; IV Status: Completed infusion; IV Intake: 08chst5 22:50 Drug: Acetaminophen PO 1000 mg Route: PO; ha1 23:50 Follow up: Response: No adverse reaction; Temperature is decreased ha 23:10 Drug: Ampicillin-Sulbactam Sodium IVPB 3 grams Route: IVPB; Infused Over: 30 mins; ha1 Site: left antecubital; 23:40 Follow up: Response: No adverse reaction; IV Status: Completed infusion; IV Intake: ha1 100ml 12/26 00:21 Drug: HYDROmorphone IVP 1 mg Route: IVP; Site: left antecubital; ha1 00:55 Follow up: Response: No adverse reaction; Pain is unchanged, physician notified; RASS: ha1 Restless (+1) 00:21 Drug: NS 0.9% IV 1000 ml Route: IV; Rate: 1 bolus; Site: left antecubital; ha1 00:21 Drug: NS 0.9% IV 1000 ml Route: IV; Rate: 125 ml/hr; Site: left antecubital; ha1 01:20 Drug: Ketorolac IVP 15 mg Route: IVP; Site: left antecubital; ha1 02:00 Follow up: Response: No adverse reaction; Pain is decreased ha1 04:11 Drug: HYDROmorphone IVP 1 mg Route: IVP; Site: left antecubital; ha1 Medication: 04:15 VIS not applicable for this client. ha1 Intake: 12/25 21:00 IV: 50ml; Total: 50ml. ha1 23:40 IV: 100ml; Total: 150ml. ha1 Outcome: 21:31 ER care complete, transfer ordered by MD. vergara 12/26 04:14 Transferred by ground EMS Transfer form completed. Note: transferred by [place] [id number] ambulance. 04:15 Condition: stable ha1 04:16 Patient left the ED. 1 Signatures: Dispatcher [employer] EDMS Lito Barton PA PA cp Lewis, Lynsay, RN RN 1 Gianna Uribe RN RN 1 Adri Gold Moriah [facility] Corrections: (The following items were deleted from the chart) 12/25 22:20 21:43 Initiated transfer to [place] [id number] 22:52 22:26 transfer initiated to [place] [id number]
[2022-12-25] MEDS ORDERED: ACETAMINOPHEN 500 MG TAB ONE (22:59)
[2022-12-25] MEDS ORDERED: AMPICILLIN/SULBACTAM 3GM/VIAL ONE (23:10)
[2022-12-25] MEDS ORDERED: NA CHLORIDE 0.9% 100 ML ONE (23:11)
[2022-12-26] MEDS ORDERED: NA CHLORIDE 0.9% 2,000 ML ONE (00:18)
[2022-12-26] MEDS ORDERED: HYDROMORPHONE HCL 1 MG/ML INJ ONE ×2 (00:18→04:16)
[2022-12-26] MEDS ORDERED: KETOROLAC 30 MG/ML INJ ONE (01:10)
[2022-12-26 05:38] VITALS: TEMP 98.8
[2022-12-26 05:44] VITALS: BP 144/84; O2SAT 99
--- NOTE | 2022-12-26 20:39 | EKG ---
Test Date: 2022-12-25 Test Time: 18:48:19 Health Technician Hearing: LINDA MEASUREMENT RESULTS: Intervals: Rate: 81 DE: 140 QRSD: 90 QT: 354 QTc: 411 Given: P: 66 DE: 140 QRS: 61 T: 47 INTERPRETIVE STATEMENTS: Normal sinus rhythm Normal ECG Compared to ECG 08/07/2013 12:31:56 Sinus arrhythmia no longer present Electronically Signed On 12-26-22 20:37:43 CDT by Braden Bland
== END 2022-12-26 04:16 ==
LOC: ER 17:46
DX: A41.9 Sepsis, unspecified organism (principal); K04.7 Periapical abscess without sinus
CPT/HCPCS: 36415; 70487; 76377; 80053; 81001; 83605; 85025; 85610; 87040; 93005; J0295; J1170; J7030; Q9967